=== PATIENT | female | born 1960 | race Caucasian/White ===

== ENCOUNTER → 2016-09-08 | Outpatient (CLI) | payer BC ==
[~2016-09-08] MED LIST: ACET-1311 PO; ALBU1AER9 INH; GABA1CAP4 PO; MULT-790 PO; NAPR1TAB9 PO; TRIA0.1C20; mobic PO
== END | disposition home or self-care (01) ==
LOC: C.RDSM 16:19
PROVIDERS: ATTEND Physical Medicine & Rehabilitation Sports Medicine
DX: M25.561 Pain in right knee (principal)

== ENCOUNTER → 2017-01-05 | Outpatient (CLI) | payer BC ==
[2017-01-05 09:35] LABS: BASO % 0.3 %; BASO ABS # 0.02 K/uL (0-0.2); COMPLETE YES; IG% 0.2 %; LYMPH % 29.7 %; LYMPH ABS # 1.79 K/uL (1.2-3.4); MEAN CELL VOLUME 90.1 fL (80-100); MEAN CORPUSCULAR HEMOGLOBIN 29.3 pg (25-34); MEAN CORPUSCULAR HGB CONC 32.6 g/dl (32-36); MEAN PLATELET VOLUME 10.6 fL (7.4-10.4); NEUT % 60.8 %; PLATELET COUNT 310 K/uL (130-400); RED BLOOD COUNT 4.33 M/uL (4.2-5.4); WHITE BLOOD COUNT 6.03 K/uL (4.8-10.8)
[2017-01-05 10:01] LABS: ALT/SGPT 29 U/L (12-78); BLOOD UREA NITROGEN 15 mg/dl (7-18); BUN/CREATININE RATIO 18.9 (10-20); CALCIUM 9.3 mg/dl (8.5-10.1); CARBON DIOXIDE 27 mmol/L (21-32); CHLORIDE 104 mmol/L (98-107); CHOLESTEROL 168 mg/dl (0-200); CREATININE 0.79 mg/dl (0.60-1.20); GLUCOSE 94 mg/dl (70-99); POTASSIUM 4.1 mmol/L (3.5-5.1); SODIUM 137 mmol/L (136-145); TRIGLYCERIDES 80 mg/dl (0-150); VERY LOW DENSITY LIPOPROT CALC 16 mg/dl
[2017-01-05 10:09] LABS: ALB/GLOB RATIO 0.9 (0.9-2); ALKALINE PHOSPHATASE 101 U/L (45-117); AST/SGOT 25 U/L (15-37); HDL CHOLESTEROL 56 mg/dl; LDL CHOLESTEROL CALCULATED 96 mg/dl
== END | disposition home or self-care (01) ==
LOC: C.LAB1850 07:56
PROVIDERS: ATTEND Physician Assistant Medical
DX: R53.83 Other fatigue (principal)

== ENCOUNTER → 2017-05-29 | Outpatient (CLI) | payer OTHER ==
[~2017-05-29] MED LIST changes: +GABA-1219 PO; -GABA1CAP4 PO
--- NOTE | 2017-05-30 14:02 | MAMMOGRAPHY REPORT ---
BILATERAL DIGITAL SCREENING MAMMOGRAM TOMOSYNTHESIS WITH CAD: 05/29/2017 CLINICAL HISTORY: Routine screening. Patient has no complaints. TECHNIQUE: Breast tomosynthesis in addition to standard 2D mammography was performed. Current study was also evaluated with a Computer Aided Detection (CAD) system. COMPARISON: Comparison is made to exams dated: 04/21/2014 mammogram, 05/01/2012 mammogram, 04/20/2011 mammogram, 04/19/2010 mammogram, 03/29/2006 mammogram, and 01/19/2003 mammogram - [facility]. BREAST COMPOSITION: There are scattered areas of fibroglandular density in both breasts. FINDINGS: The parenchymal pattern is unchanged. No developing mass, architectural distortion or clus ter of suspicious microcalcifications is seen in either breast. IMPRESSION: ACR BI-RADS CATEGORY 2: BENIGN There is no mammographic evidence of malignancy. A 1 year screening mammogram is recommended. The pa tient will receive written notification of the results. Approximately 10% of breast cancers are not detected with mammography. A negative mammographic report should not delay biopsy if a clinically suggestive mass is present. Genesis Jones M.D. ay/:05/29/2017 17:49:17 Cost And Sales Record Supervisor: Nissa Edward, M, [facility] letter sent: Normal 1/2 BI-RADS Code: ACR BI-RADS Category 2: Benign
== END | disposition home or self-care (01) ==
LOC: C.MAMM 10:22
PROVIDERS: ATTEND Obstetrics & Gynecology
DX: Z12.31 Encounter for screening mammogram for malignant neoplasm of breast (principal)

== ENCOUNTER 2023-12-28 09:31 | Observation (INO) ==
--- NOTE | 2023-11-29 13:31 | PAT Medication Instructions ---
Medication Instructions Date of Service November 29, 2023 Home Medications Medication Instructions Recorded loratadine 10 mg tablet (Claritin) 10 mg PO DAILY #90 tabs 06/01/23 gabapentin 300 mg capsule 300 mg PO TID #270 caps 06/07/23 multivitamin 1 tab PO DAILY loratadine 10 mg tablet (Claritin) 10 mg PO DAILY gabapentin 300 mg capsule 300 mg PO TID albuterol sulfate 90 mcg/actuation aerosol inhaler 2 puff inhalation UD PRN amlodipine 5 mg tablet 5 mg PO HS losartan 100 mg tablet 100 mg PO HS meloxicam 15 mg tablet 15 mg PO HS semaglutide (weight loss) 0.25 mg/0.5 mL subcutaneous pen injector (Wegovy) 0.25 mg subcut WK STOP 7 days before surgery semaglutide (weight loss) 0.25 mg/0.5 mL subcutaneous pen injector (Wegovy) 0.25 mg subcut WK Continue as directed albuterol sulfate 90 mcg/actuation aerosol inhaler 2 puff inhalation UD PRN(use if needed; please bring with you to hospital day of surgery if possible) ASK your surgeon for instructions meloxicam 15 mg tablet 15 mg PO HS DO NOT take the morning of surgery multivitamin 1 tab PO DAILY loratadine 10 mg tablet (Claritin) 10 mg PO DAILY Take morning of surgery With a small sip of water, OTHERWISE NOTHING TO EAT OR DRINK AFTER MIDNIGHT: gabapentin 300 mg capsule 300 mg PO TID Take evening before surgery gabapentin 300 mg capsule 300 mg PO TID amlodipine 5 mg tablet 5 mg PO HS losartan 100 mg tablet 100 mg PO HS Other Notes If you have any questions please call us at [phone] or [phone] or [phone] or [phone]
--- NOTE | 2023-12-05 12:21 | Anesthesiology Consultation ---
Date of Service December 05, 2023 Assessment & Plan (1) Encounter for pre-operative examination: - Infectious disease screening: Per assessment on 12/05/23: No known recent infectious disease contacts or current infectious disease symptoms. - Outpatient joint assessment: Pt currently scheduled for inpatient pathway. If surgeon requests review for outpatient joint pathway, patient is an acceptable candidate for outpatient joint program from anesthesia standpoint pending surgeon's office assessment that patient is motivated, has good support and completes [facility] preop requirements. - Semaglutide instructions: Taking for weight loss. Patient informed at PAT visit to stop 7 days prior to surgery- voiced understanding. DOS 12/27. Advised last dose to be 12/18. - Patient has routine visit with PCP- Awaiting upcoming PCP office visit note (LISA, appt 12/17). Patient otherwise acceptable risk for surgery. Chart Review Chart Review: Patient seen in Pre Admission Testing Teaching & Discussion Pre-Anesthesia Teaching/Discussion Notes: Instructed NPO after midnight before surgery,except medications with 15 cc of water. Medication instructions provided according to the [facility] guidelines. History Surgery Operation Date: 12/28/23 08:00 Proposed Procedures p Left Total Knee Arthroplasty - Jonah Salter, DO Height/Weight Height: 5 ft 5 in Weight: 108.2 kg Allergies Allergy/AdvReac Type Severity Reaction Status Date / Time codeine Allergy Intermediate makes me Verified 11/28/23 15:06 loopy Medications Home Medications Medication Instructions Recorded Confirmed Last Taken multivitamin 1 tab PO DAILY 06/01/19 11/28/23 Unknown loratadine 10 mg tablet (Claritin) 10 mg PO DAILY #90 tabs 06/01/23 11/28/23 Unknown gabapentin 300 mg capsule 300 mg PO TID #270 caps 06/07/23 11/28/23 Unknown albuterol sulfate 90 mcg/actuation 2 puff inhalation UD PRN Shortness 11/28/23 11/28/23 Unknown aerosol inhaler Of Breath amlodipine 5 mg tablet 5 mg PO HS 11/28/23 11/28/23 Unknown losartan 100 mg tablet 100 mg PO HS 11/28/23 11/28/23 Unknown meloxicam 15 mg tablet 15 mg PO HS 11/28/23 11/28/23 Unknown semaglutide (weight loss) 0.25 0.25 mg subcut WK 11/28/23 11/28/23 Unknown mg/0.5 mL subcutaneous pen injector (Charleen) Past Medical History Medical History Asthma History of COVID-19 (09/2022) Asymptomatic HTN (hypertension) Hyperlipidemia Per records Osteoarthritis Exercise / Class Metabolic Activity II 4-5 Yardwork/Stairs/Walk up hill (one FS: No CP, no SOB) Past Family History Family History Father Alcoholism Tobacco use Mother Diabetes Bladder cancer Heart disease Allergies Renal insufficiency Cancer Hypertension Stroke Family history of reaction to anesthesia slower to wake up Sister Intellectual disability Other No family history of bleeding disorder Denies family history of Ovarian cancer Prostate cancer Myocardial infarction Breast cancer Colorectal cancer Past Surgical History Surgical History History of section x3 History of colonoscopy History of foot surgery right Past Anesthesia History No Hx of Anesthesia Complications * Mother: Slow to wake History of PONV No Hx of PONV and No Hx of Motion Sickness Social History Smoking Status: Former smoker tobacco type: cigarettes Do You Dip or Chew Tobacco: No Smoking End Date: Quit 1999 (hx less than 1 PPD) Hx Alcohol Use: Yes (Very rare current use, heavy episode in 08/2023 no ETOH use since) Alcohol type: beer and wine Hx Substance Use: No substance use type: does not use Review of Systems Patient denies chest pain, shortness of breath, dyspnea on exertion, fever, chills, cough, wheezing, palpitations. Physical Exam Vital Signs BP 112/75 P 68 TEMP 97.8 SP02 96%RA RESP 16 Physical Full cervical extension range of motion. Full TMJ range of motion. TMD > 3 finger breaths Mallampati Score I Dentition: missing right side, + crowns Lungs: clear throughout to auscultation Cardiac: regular rate and rhythm, no murmurs noted Spine: normal Carotid arteries: negative bruit Extremities: no LE edema Thick neck Lab Results Anesthesia Preop Results Results Anesthesia Widget: WBC 6.69 K/ul (4.8-10.8) 12/05/23 Hgb 12.2 g/dl (12.0-16.0) 12/05/23 Hct 38.8 % (37.0-47.0) 12/05/23 Plt 332 K/uL (130-400) 12/05/23 Na 137 mmol/L (136-145) 12/05/23 K 4.6 mmol/L (3.5-5.1) 12/05/23 Cl 104 mmol/L (98-107) 12/05/23 CO2 28 mmol/L (21-32) 12/05/23 BUN 13 mg/dl (6-23) 12/05/23 Creat 0.66 mg/dl (0.6-1.2) 12/05/23 Glucose Level 108 mg/dl (70-99(Fasting)) H 12/05/23 PT 10.8 Seconds (9.0-12.0) 12/05/23 PTT 30 Seconds (21-31) 12/05/23 INR 1.0 (0.9-1.1) 12/05/23 Blood Type A Positive 12/05/23 Antibody Screen NEGATIVE 12/05/23 Testing Electrocardiogram Date: 12/05/23 Findings: + NSR @ (65) Chest X-Ray Date: 12/05/23 FINDINGS: Lung volumes are normal. Lungs are clear. There is no pneumothorax or pleural effusion. Cardiac size is normal. Mediastinal contours are normal. There is no evidence for pulmonary edema. IMPRESSION: No acute cardiopulmonary findings.
[~2023-12-28 09:31] MED LIST changes: -ACET-1311 PO; -ALBU1AER9 INH; +BUPIVACAINE 0.5 % 5 MG/1 ML PF 10ML VIAL ONE; -GABA-1219 PO; -MULT-790 PO; -NAPR1TAB9 PO; +ROPIVACAINE 0.5% 5 MG/ML 30 ML VIAL ONE; -TRIA0.1C20; -mobic PO
[2023-12-28] MEDS: FAMOTIDINE 20 MG TAB PO SCH (10:30)
[2023-12-28] MEDS: dexAMETHasone**PF** 10 MG/ML VIAL IV SCH (10:31)
[2023-12-28] MEDS: ACETAMINOPHEN 500 MG TAB PO SCH ×2 (10:31→16:20)
[2023-12-28] MEDS: GABAPENTIN 300 MG CAP PO SCH ×2 (10:31→16:12)
[2023-12-28] MEDS ORDERED: MIDAZOLAM HCL 1 MG/ML 2ML VIAL ONE (10:32)
[2023-12-28] MEDS ORDERED: LIDOCAINE 2% 2 ML VIAL/AMP(20MG/ML) INFIL ONE (10:32)
[2023-12-28] MEDS ORDERED: ONDANSETRON INJ 2 MG/ML 2 ML VIAL ONE (10:32)
[2023-12-28] MEDS: LR 500ML BOLUS, THEN 15ML/HR IV SCH (10:32)
[2023-12-28] MEDS ORDERED: PROPOFOL IV EMULSION 10 MG/ML 20 ML VIAL IV ONE (10:32)
[2023-12-28] MEDS: LR 60ML/HR IV SCH (10:32)
--- NOTE | 2023-12-28 11:20 | History & Physical Bridge Note ---
Date of Service December 28, 2023 History & Physical Bridge Note I have examined the patient, reviewed the History & Physical and in the interval since the performance of the History & Physical I have noted the following changes of clinical significance: no changes noted
[2023-12-28] MEDS ORDERED: fentaNYL citrate PF 100 MCG/2 ML VIAL IV PRN (11:50)
[2023-12-28] MEDS ORDERED: ePHEDrine sulfate 50 MG/ML AMP IV PRN (11:50)
[2023-12-28] MEDS ORDERED: ATROPINE SULFATE 0.1 MG/ML 10ML SYR IV PRN (11:50)
[2023-12-28] MEDS ORDERED: ONDANSETRON INJ 2 MG/ML 2 ML VIAL IV PRN ×2 (11:50→15:38)
[2023-12-28] MEDS: TRANEXAMIC ACID 1,000 MG **IV Pre-op IV SCH (11:57)
[2023-12-28] MEDS: ceFAZolin 2000MG 2,000 MG/15 ML SYR IV SCH ×2 (12:14→21:19)
[2023-12-28] MEDS ORDERED: KETAMINE HCL 10MG/ML SYR ONE (12:20)
[2023-12-28] MEDS: ORTHO JOINT ANESTHETIC ONE (12:56)
[2023-12-28] MEDS: ROPIV 0.5% 246mg, Ketorolac 30mg, EPINEPHrine 0.5mg in NSS INFIL SCH (12:56)
[2023-12-28] MEDS: TRANEXAMIC ACID 1,000 MG **IV Intra-op IV SCH (13:04)
--- NOTE | 2023-12-28 13:30 | Operative Report ---
PG Post Operative Report Pre & Post Diagnosis Operation Date: 12/28/23 12:00 Pre-Op Diagnosis: Left Knee Arthritis Post-Op Diagnosis: Left Knee Arthritis I identified the patient and participated in the time-out.: Yes Procedure Operation Date: 12/28/23 12:00 Actual Procedures p Left Total Knee Arthroplasty, Cemented(Left) - Jonah Salter DO Surgeon Jonah Salter DO Substation Superintendent Jonah Scott PA-C Estimated Blood Loss 30 Findings Consistent with Post-Op Diagnosis Specimens Left femoral and tibial bone Description of Procedure Implants used: I used a John Persona total knee arthroplasty system with a size 6 PS standard femur, D tibia, 31 oval patella, and a size 14 CPS polyethylene bearing. All components were cemented in place with Biomet cement. Julia arrived [facility] for the above procedure. She was seen in the preoperative holding area and the operative extremity was identified and signed. She was given a preoperative antibiotic, TXA, a spinal anesthetic and an adductor nerve block. She was taken back to the operating room and laid on the table in supine position. She was given basic sedation. The operative knee was then prepped and draped in sterile fashion. A timeout was done, and the patient and the operative extremity was properly identified. A midline incision was made directly over the patella. Dissection was taken down to the extensor mechanism. A medial parapatellar arthrotomy was used. The medial retinaculum was released and the fat pad was mostly excised. The knee was flexed and the ACL, PCL, and meniscus were removed. A drill was sent down the center of the femoral canal followed by an intramedullary lani. Off that lani a distal femoral cutting block was placed. 9 mm was resected off the distal femur at 5 of valgus. A posterior referencing AP sizing guide was then placed on the distal femur. The femur measured to be a size 6. 2 drill holes were placed in 3 of external rotation. A 4-in-1 cutting block was then impacted into place. Anterior, posterior, and chamfer cuts were then made. The proximal tibia was then exposed. An external tibial alignment guide was placed. A tibial cut guide was then anchored in place and the proximal tibia was then resected. The posterior aspect of the knee was then opened up and any additional meniscus fragments and osteophytes were removed. The tibia measured to be a size D. The tibial plate was then placed in the appropriate rotation and the tibia was drilled and punched. Trial components were then placed. I used a size 14 CPS polyethylene insert. The knee was brought through a full range of motion and felt to be stable. The peg holes for the femoral component were then drilled. The patella was then everted and 9 mm was resected off the posterior aspect of the patella. The patella measured to be a size 31 oval. 3 peg holes were then drilled. A trial patella was placed. The knee was once again brought through a full range of motion and felt to be stable. Trial components were then removed. The surrounding soft tissues were injected with 100 cc of an orthopedic pain control cocktail. All components were then cemented into place with Biomet cement. The final polyethylene insert was then snapped into place. Once cement was dry the tourniquet was deflated. He mostasis was obtained. A dilute betadyne lavage was then done for 3 minutes. The joint was then irrigated with normal saline solution. The medial parapatellar arthrotomy was then closed with #1 Vicryl suture. The skin was closed with 2-0 Vicryl, 3-0V lock suture, and nohemi. A soft compressive dressing was placed. She was then transferred to a hospital bed and taken to the postanesthesia care unit in stable condition. She tolerated the procedure well. Jonah Scott PA-C, was present for the entire procedure. He was critical for patient positioning, prepping, draping, retraction exposure, wound closure and application of sterile dressing. I attest to the content of the Intraoperative Record and any orders documented therein. Any exceptions are noted below.
--- NOTE | 2023-12-28 15:02 | XRay Report ---
XR knee LT 1 or 2V routine HISTORY: 63 years-old Female Surgical Post Op left knee arthroplasty COMPARISON: Radiographs 04/20/2023 TECHNIQUE: 2 views of the left knee FINDINGS: Total joint arthroplasty with patellar resurfacing. Anterior midline skin nohemi with expected posto perative soft tissue swelling and deep tissue air. No acute fracture, dislocation or unexpected opaqu e foreign body. IMPRESSION: Total joint arthroplasty with expected postoperative changes. ACT 112: Negative or not required by law. The above report was generated using voice recognition software. It may contain grammatical, syntax o r spelling errors. Electronically signed by: Alonso Bernal M.D. 12/28/2023 3:01 PM
--- NOTE | 2023-12-28 15:03 | Anesthesiology Progress Note ---
Date of Service December 28, 2023 Anesthesia Post Procedure Vital Signs Vital Signs: Temp Pulse Pulse Resp BP Pulse Ox O2 Del Method 12/28/23 14:40 70 13 145/89 H 98 Room Air 12/28/23 14:30 97.5 F L 73 14 144/91 H 96 Room Air 12/28/23 14:20 72 18 125/97 93 Room Air 12/28/23 14:10 78 19 135/86 95 Room Air 12/28/23 14:00 73 13 126/77 93 Room Air 12/28/23 13:50 75 12 130/86 96 Oxymask 12/28/23 13:40 97.0 F L 91 H 20 126/77 94 Oxymask 12/28/23 10:05 98.4 F 74 18 163/84 H 97 Room Air O2 Flow Rate 12/28/23 14:40 12/28/23 14:30 12/28/23 14:20 12/28/23 14:10 12/28/23 14:00 12/28/23 13:50 2 12/28/23 13:40 2 12/28/23 10:05 Transfer of Care Handoff Completed per policy Notes Mental Status: alert / awake / arousable and participated in evaluation Patient Amnestic to Procedure: Yes Nausea / Vomiting: adequately controlled Pain: adequately controlled Airway Patency, RR, SpO2: stable & adequate BP & HR: stable & adequate Hydration State: stable & adequate Neuraxial Anesthesia: was administered and sensory block is resolving Anesthetic Complications: no major complications apparent and Pt Satisfied with anesthetic care
[2023-12-28] MEDS ORDERED: LORATADINE 10 MG TAB PO PRN (15:38)
[2023-12-28] MEDS ORDERED: ALBUTEROL HFA 8 GM INHALER INH PRN (15:38)
[2023-12-28] MEDS ORDERED: MAGNESIUM HYDROXIDE SUSP 30 ML UDC PO PRN (15:38)
[2023-12-28] MEDS ORDERED: METOCLOPRAMIDE HCL INJ 5 MG/ML 2 ML VIAL IV PRN (15:38)
[2023-12-28] MEDS ORDERED: NALOXONE HCL 0.4 MG/1 ML VIAL/CARP IV PRN (15:38)
[2023-12-28] MEDS ORDERED: HYDROmorphone INJ 0.5 MG/0.5 ML SYR IV PRN (15:38)
[2023-12-28] MEDS ORDERED: bisacodyL 10 MG SUPP PR PRN (15:38)
[2023-12-28] MEDS: KETOROLAC 30 MG/ML VIAL IV SCH (16:12)
[2023-12-28] MEDS: SODIUM CHLORIDE 0.9% 1,000 ML IV SCH (16:13)
[2023-12-28] MEDS: oxyCODONE HCL IR 5 MG TAB (IMMEDIATE RELEASE) PO PRN (18:45)
[2023-12-28] MEDS: SENNA 8.6 MG TAB PO SCH (21:18)
[2023-12-28] MEDS: DOCUSATE SODIUM 100 MG CAP PO SCH (21:18)
[2023-12-28] MEDS: LOSARTAN POTASSIUM 50 MG TAB PO SCH (21:18)
[2023-12-28] MEDS: amLODIPine BESYLATE 5 MG TAB PO SCH (21:18)
[2023-12-28] MEDS: ASPIRIN 81 MG ECTAB PO SCH (21:19)
[2023-12-29 02:08] VITALS: TEMP 97.7; O2SAT 97
--- NOTE | 2023-12-29 07:16 | Discharge Summary ---
Date of Service December 29, 2023 Principal Diagnosis Same as "Discharge Diagnosis" noted below under Discharge Instructions. Discharge Exam On physical examination of the left knee, the dressing is clean and dry. Her leg is out full extension. She has active dorsiflexion plantarflexion of her left ankle.. Discharge Data Procedures Performed Operation Date: 12/28/23 12:00 Actual Procedures p Left Total Knee Arthroplasty, Cemented(Left) - Jonah Salter DO Ordered Studies 12/28/23 05:00 US - OR guided needle placemen Routine Hospital Course (1) Status post left knee replacement: On December 28, 2023 Julia arrived at [facility] and underwent a knee replacement without complication. She had a spinal anesthetic. Postoperatively she was started on aspirin for DVT prophylaxis and transferred to the general orthopedic floors. Her hospital course was uneventful. On postop day #1, her vital signs were stable and her pain was well-controlled. She was able to participate well with physical therapy doing ambulation and range of motion exercises. She was then discharged to home. She will follow-up with orthopedics in 2 weeks. PG Care Time/CCT Total # of Minutes Spent Total Time Spent with Patient: Total time spent is greater than 50% in coordination of care (as documented) at patient's floor/unit and/or counseling patient: Discharge Plan Discharge Items Patient Disposition: Home - Self-Care Reason For Visit: Left Knee Arthritis Discharge Diagnosis: Left knee replacement Activity: Per Instructions section Non-emergency contact: Surgeon Call non-emergency contact if: your wound has increased redness and your wound has increased drainage Follow-up/Referrals: Jossy Zheng MD [Primary Care Provider] - Diet: Regular Addtl Attending Provider Instructions: Activity and Therapy Recommendations: * If you are using [facility] then therapy will be provided at your home until they feel you have accomplished all of your goals. * If you are using [facility] then Physical Therapy will be provided until they feel you are ready to start Outpatient Physical Therapy. * If you are not using home therapy then Outpatient Physical Therapy should start about 3-5 days from your day of surgery. Therapy will last about 6-10 weeks * It is important not to put a pillow under your knee when you are relaxing or sleeping. It is just as important to make sure you are getting your knee perfectly straight as it is to regain your knee bend. * You were shown a series of exercises in the hospital. Do these exercises three times each day including the exercises you were shown in physical therapy. * Get up and walk several times each day. For the first four weeks, try not to stand or walk for more than one hour at a time. If you do stand or walk for more than one hour, you will not hurt anything, but your leg will likely swell. * As you feel comfortable, you may change from the walker or crutches to a cane and then to independent walking. Medications: * Narcotic You will likely be sent home from the hospital with a prescription for the narcotic pain medication that worked best throughout your stay. * Cefadroxil -take the antibiotic twice a day for 10 days to help prevent infection. * Aspirin Most patients will be required to take Aspirin 81mg twice a day for 6 weeks after surgery. This is obtained [id number] and a prescription is not necessary. * Other medications may be prescribed for specific circumstances. If you have any questions, please call the office at . * Resume previous home medications unless otherwise instructed TEDs/Elastic Stockings: The white elastic stockings help limit swelling and prevent blood clots from forming in your legs.~ The more you wear them, the more they work. Wear them for six weeks. Dressing Care: The dressing can be changed after physical therapy on postop day #1. Daily dry dressing changes for a few days, especially if the incision is still draining some. If the incision is not draining then you may leave the nohemi open to air. If there is a little bit of drainage or if the nohemi are getting stuck on your clothing then cover the incision with a dry dressing. The nohemi will be removed at your 2 week follow-up appointment. Showering: You may shower 5 days from the day of surgery as long as the incision is no longer draining. You may shower with the nohemi exposed. Let soapy water run over the nohemi and pat them dry. Do not scrub or soak the incision. Things To Watch For: * Drainage from the incision site that occurs more than one week after your surgery. * Increased redness at the incision site. * Fever above 102 degrees Fahrenheit. * Unusual chest pain or shortness of breath. * Call [facility] at with any of the above problems Follow-Up Visit: Follow-up with Dr. Salter's PA (Jonah Scott) 2-3 weeks after your day of surgery. He will remove your nohemi and answer any questions. If you have any additional questions or concerns, Dr Salter is usually in the office at the same time and will be available An appointment was probably scheduled when you signed-up for surgery in the office. If you have any questions call Office Instructions: More detailed instructions as well as Frequently Asked Questions were provided in a folder by our office when you signed-up for surgery. Please review these instructions when you get home. If you have any further questions or concerns, please feel free to call the office at [phone] Pending Studies at Discharge: No Stand-Alone Forms: [facility] Medications and DC Order Prescriptions: New oxycodone 5 mg Tablet 5 mg PO Q4H PRN (Reason: pain) Qty: 30 0RF cefadroxil 500 mg capsule 500 mg PO BID 10 Days Qty: 20 0RF aspirin 81 mg Tablet,Delayed Release (Dr/Ec) 81 mg PO BID 42 Days Qty: 0 0RF Continued gabapentin 300 mg capsule 300 mg PO TID Qty: 270 3RF multivitamin Tablet 1 tab PO DAILY Ozempic 0.25 mg or 0.5 mg (2 mg/3 mL) pen injector 0.25 mg subcut WK 0RF amlodipine 5 mg tablet 5 mg PO HS albuterol sulfate 90 mcg/actuation HFA aerosol inhaler 2 puff INH UD PRN (Reason: Shortness Of Breath) meloxicam 15 mg tablet 15 mg PO HS Hold Instructions: pre op losartan 100 mg tablet 100 mg PO HS loratadine [Claritin] 10 mg tablet 10 mg PO DAILY PRN (Reason: Allergy Symptoms) Discharge Orders: Discharge Order (Routine); Ordered 12/29/23 Ordered By: Jonah Salter Admission Data Admit Date/Time: 12/28/23 13:43 Attending Provider: Jonah Salter Admit Provider: Jonah Salter Primary Care Provider: Jossy Zheng
--- NOTE | 2023-12-29 07:16 | Orthopedic Progress Note ---
Date of Service December 29, 2023 Assessment & Plan (1) Status post left knee replacement: Overall she is doing fairly well. She is not having much pain in the left knee. She will be seen by physical therapy today for ambulation and range of motion exercises. She is on aspirin for DVT prophylaxis. The nursing staff can change her dressing after physical therapy. She can be discharged home later today. She will follow-up with orthopedics in 2 weeks. Subjective Julia was seen and examined at bedside this morning. Overall she is doing very well. She is not having much pain in the left knee. She has been up and ambulating to the bathroom. She has no complaints.. Review of Systems All systems reviewed & are unremarkable except as noted in HPI & below. Physical Exam On physical examination of the left knee, the dressing is clean and dry. Her leg is out full extension. She has active dorsiflexion plantarflexion of her left ankle.. Results & Data Results & Data Laboratory Results . Diagnostic Findings Postoperative x-rays of the left knee show the prosthesis to be in anatomic alignment without any evidence of fracture, desiccation, or loosening.. PG Care Time/CCT Total # of Minutes Spent Total Time Spent with Patient: Total time spent is greater than 50% in coordination of care (as documented) at patient's floor/unit and/or counseling patient: Coding Level of Care Code 67876 Post Operative Follow-Up Diagnoses Status post left knee replacement Z96.652
[2023-12-29 07:37] VITALS: BP 135/96; PULSE 55; RESP 16
[2023-12-29] MEDS: dexAMETHasone 4 MG TAB PO SCH (08:56)
[2023-12-29] MEDS: MULTIVITAMIN TAB PO SCH (08:57)
== END 2023-12-29 11:24 | disposition home or self-care (01) ==
LOC: 3E 09:31 → ASU 09:31